=== PATIENT | female | born 1955 | race Caucasian/White ===

== ENCOUNTER 2023-03-11 13:22 | Emergency (ER) | payer MEDICARE, BC ==
[2023-03-11] MEDS ORDERED: Iopamidol 755 Mg/ML 100 ML Bottle IVPUSH ONE (15:07)
[2023-03-11] MEDS ORDERED: Sodium Chloride 0.9% 10 ML Syringe FLUSH PRN (15:07)
[2023-03-11] MEDS ORDERED: Sodium Chloride 0.9% 100 ML IV SCH (15:15)
[2023-03-11] MEDS ORDERED: Heparin Sodium 5,000 Units/ML Vial IVPUSH ONE (18:59)
[2023-03-11] MEDS ORDERED: Heparin Sodium/D5W 25,000 UNITS/500 ML BAG IV SCH (19:00)
[2023-03-11] MEDS ORDERED: Metoprolol Succinate 25 MG Tab.ER PO ONE (19:01)
[2023-03-11] MEDS ORDERED: Aspirin 81 MG Tab.Chew PO ONE (19:17)
== END 2023-03-11 20:50 ==
LOC: JD.ED 13:22
DX: I21.4 Non-ST elevation (NSTEMI) myocardial infarction (principal); I48.91 Unspecified atrial fibrillation
CPT/HCPCS: 36415; 70450; 70496; 70498; 80053; 82947; 83735; 84484; 85025; 85610; 85730; 93005; 96361; 96374; 99285; A9270; J1644; J3490; Q9967; 93010